=== PATIENT | female | born 1955 | race Caucasian/White ===

== ENCOUNTER 2018-08-19 13:27 | Emergency (ER) | payer MEDICAID ==
[~2018-08-19] VITALS: Ht 172.7 cm; Wt 85.1 kg
[2018-08-19 13:36] VITALS: BP 163/72; PULSE 83; RESP 20; Ht 172.7 cm; Wt 85.1 kg
[2018-08-19] MEDS ORDERED: GABAPENTIN 300 MG CAP PO ONE (19:30)
--- NOTE | 2018-08-19 19:34 | ERD ---
ER Documentation Chief Complaint Chief Complaint Complains of left leg pain x 3 days HPI 63-year-old female with history of type 2 diabetes presents with pain in the upper left leg for the past 3 days. She denies any history of leg pain or history of trauma. Denies any recent surgeries, travel, history of blood clots, fevers, dysuria, hemoptysis, dyspnea, chest pain, denies incontinence or saddle numbness. In addition she requests a refill of metformin until she can see her primary care. Has now missed doses. Currently taking 500 mg twice daily. ROS All systems reviewed and are negative except as per history of present illness. Medications Home Meds Active Scripts Metformin* (Glucophage*) 500 Mg Tab, 500 MG PO BID, #20 TAB Prov:KATI BAJWA 08/19/18 Gabapentin* (Gabapentin*) 300 Mg Capsule, 300 MG PO TID for pain, #21 CAP Prov:KATI BAJWA 08/19/18 PMhx/Soc History of Surgery: No Anesthesia Reaction: No Hx Neurological Disorder: No Hx Respiratory Disorders: No Hx Cardiac Disorders: No Hx Psychiatric Problems: No Hx Miscellaneous Medical Probl: Yes (DM) Hx Alcohol Use: No Hx Substance Use: No Hx Tobacco Use: No Smoking Status: Never smoker FmHx Family History: No diabetes, No coronary disease, No other Physical Exam Vitals Vital Signs Date Temp Pulse Resp B/P (MAP) Pulse Ox O2 O2 Flow FiO2 Time Delivery Rate 08/19/18 97.8 83 20 163/72 97 13:36 (102) Physical Exam Const: No acute distress Head: Atraumatic Eyes: Normal Conjunctiva ENT: Normal External Ears, Nose and Mouth. Neck: Full range of motion. No meningismus. Resp: Clear to auscultation bilaterally Cardio: Regular rate and rhythm, no murmurs Abd: Soft, non tender, non distended. Normal bowel sounds Skin: No petechiae or rashes Back: No midline or flank tenderness Ext: Left leg is nonedematous or erythematous. There is some mild tenderness to palpation in the anterior upper aspect but no lesions or masses noted. 5 o ut of 5 strength and full range of motion. There is no edema, erythema, ecchymosis, or jason deformity noted. Overlying skin is intact. Compartments are soft and warm. There is no pallor or cyanosis. Range of motion, distal pulses, and distal sensation is intact. There is normal cap refill. Neur: Awake and alert Psych: Normal Mood and Affect Results 24 hrs Laboratory Tests Test 08/19/18 19:29 Creatine Kinase 26 IU/L Current Medications Medications Dose Sig/Mariel Start Time Status Last (Trade) Ordered Route PRN Stop Time Admin Dose Reason Admin Gabapentin 300 mg ONCE ONCE 08/19/18 DC 08/19/18 (Neurontin) PO 19:30 08/19/18 20:02 19:31 Procedures/MDM Ultrasound and CT was ordered to rule out possible clot or rhabdo. Both within normal limits. DIAGNOSTIC IMAGING REPORT Patient: GRISELDA FORD : 1955 Age: 63 Sex: F MR #: [id number] DOS: 08/19/181918 Ordering MD: KATI BAJWA Location: [facility] Room/Bed: PROCEDURE: US Lower extremity Venous left. CLINICAL INDICATION: Left leg pain with history of trauma TECHNIQUE: Multiple sonographic images of the left lower extremity deep venous system was obtained utilizing grayscale, color-flow, compressive sonography and doppler imaging with augmentation. The images were reviewed on a PACS workstation. COMPARISON: None. FINDINGS: There is normal compressibility and flow within left common femoral, femoral, popliteal, posterior tibial and peroneal veins. IMPRESSION: No sonographic evidence for left lower extremity deep venous thrombosis. RPTAT: HJES .Edy Perez MD, MD Date Time Electronically viewed and signed by .Edy Perez MD, on 08/19/2018 19:52 .S/ CC: KATI BAJWA [phone] 63-year-old female with history of type 2 diabetes presents with pain in the upper left leg for the past 3 days. She denies any history of leg pain or history of trauma. Denies any recent surgeries, travel, history of blood clots, fevers, dysuria, hemoptysis, dyspnea, chest pain, denies incontinence or saddle numbness. In addition she requests a refill of metformin until she can see her primary care. Currently taking 500 mg twice daily. Ultrasound and CK were ordered in both within normal limits. Therefore low suspicion for DVT, rhabdomyolysis and given patient lack of trauma history of there is no indication of fracture or compartment syndrome. I have low suspicion for neurovascular compromise, compartment syndrome, fracture, osteomyelitis, septic joint, or other emergent condition. Given patient history of diabetes decision was made to give patient gabapentin in the ER which resolved her pain. Patient discharged a short course of gabapentin and told that she needs to follow-up with her primary care. patient discharged with strict ER precautions. Patient advised to follow up with PMD. All questions answered at discharge. Departure Diagnosis: Primary Impression: Pain of left leg Condition: Stable KATI BAJWA Aug 19, 2018 19:34
[2018-08-19] MEDS ORDERED: GABA300C16 PO (20:48)
[2018-08-19] MEDS ORDERED: METF-849 PO (20:50)
== END 2018-08-19 21:06 | disposition home or self-care (01) ==
LOC: FTE 13:27
DX: M79.605 Pain in left leg (principal); E11.9 Type 2 diabetes mellitus without complications; Z79.84 Long term (current) use of oral hypoglycemic drugs
CPT/HCPCS: 82550; 93971; Z7502; Z7610